=== PATIENT | female | born 1985 | race Caucasian/White ===

== ENCOUNTER → 2020-03-26 | Outpatient (CLI) | payer SELFPAY ==
--- NOTE | 2020-03-27 08:44 | US ---
PROVIDED CLINICAL HISTORY/REASON FOR EXAM: PELVIC AND PERINEAL PAIN TECHNIQUE: Real-time sonographic evaluation of the pelvis was performed by a install technician and multiple images were saved for interpretation. COMPARISON: None available. FINDINGS: The uterus measures 8.6 x 3.8 x 6.1 cm. The uterus is anteverted. Posterior intramural fibroid measuring 2.5 cm. Posterior intramural fibroid measuring 2.3 cm. The endometrial stripe measures 1.3 cm. The right ovary measures 2.7 x 1.8 x 2.0 cm. The left ovary measures 2.5 x 1.6 x 2.2 cm. Both ovaries are normal in sonographic appearance with less than 12 follicles and normal symmetric flow. Trace amount of physiologic free fluid in the pelvis. IMPRESSION: Fibroid uterus. Trace amount of physiologic free fluid in the pelvis. Electronically signed by: Bong Nettles MD 03/27/2020 8:42 AM CDT
== END ==
LOC: US 12:11
PROVIDERS: ATTEND Family Medicine
DX: D25.9 Leiomyoma of uterus, unspecified (principal); R18.8 Other ascites